=== PATIENT | female | born 1980 | race Caucasian/White ===

== ENCOUNTER 2024-11-09 15:03 | Outpatient (CLI) | payer MEDICARE, SELFPAY | END 2024-11-09 15:04 | disposition home or self-care (01) | LOC: NFLDREF 11-16 02:22 | PROVIDERS: Visit Provider Physician Assistant | DX: R82.90 Unspecified abnormal findings in urine (principal) | CPT/HCPCS: 87086 ==

== ENCOUNTER 2025-01-04 10:42 | Outpatient (CLI) | payer MEDICARE, SELFPAY | END 2025-01-04 10:43 | disposition home or self-care (01) | PROVIDERS: Visit Provider Physician Assistant Medical | DX: F32.A Depression, unspecified (principal); F98.8 Other specified behavioral and emotional disorders with onset usually occurring in childhood and adolescence; F90.9 Attention-deficit hyperactivity disorder, unspecified type; F41.1 Generalized anxiety disorder; F43.10 Post-traumatic stress disorder, unspecified | CPT/HCPCS: 80053; 80306; 82306; 82607; 82728 ==